=== PATIENT | female | born 1950 | race Caucasian/White ===

== ENCOUNTER → 2021-09-18 | Day surgery (SDC) | payer MEDICARE, OTHER ==
[2021-09-17 09:18] VITALS: BMI 34.0
[~2021-09-18] MED LIST: BUPIVACAINE (PF) 0.25% 30 ML VIAL SQ ONE; DEXAMETHASONE SOD PHOSPHATE 4 MG/ML 1 ML VIAL IV ONE; HYDROmorphone 0.5 MG/0.5 ML SYRINGE IVP PRN; LACTATED RINGERS 1,000 ML IV ONE; LACTATED RINGERS 1,000 ML IV SCH; LIDOCAINE 1% INJ 10MG/ML (20 ML MDV) ONE; MIDAZOLAM 2 MG/2 ML VIAL IV PRN; MIDAZOLAM 2 MG/2 ML VIAL IVP ONE; ONDANSETRON 4 MG/2 ML VIAL IVP ONE; PROPOFOL 10 MG/ML 20 ML VIAL IV ONE; ROPIVACAINE 5 MG/ML 30 ML VIAL ONE; SODIUM CHLORIDE 0.9% (PF) 10 ML VIAL ONE; ePHEDrine 50 MG/ML 1 ML VIAL ONE; fentaNYL (PF) 50 MCG/ML 2 ML AMP IVP ONE; fentaNYL (PF) 50 MCG/ML 2 ML AMP ONE
--- NOTE | 2021-09-18 08:53 | P.ANPRN ---
Procedure Note - Anesthesia - Nerve Block Performed Right Popliteal Single Time Out Performed: Yes (0740) Date of Procedure: 09/18/21 Procedure Start Time: 07:41 Procedure Stop Time: 07:46 Location of Patient: PreOp Indication: Acute Post-Operative Pain, Requested by Surgeon Specifically requested for management of pain by DrBridget: Louis Fuentes Sedation Type: Sedate with meaningful contact maintained Preparation: Sterile Prep Position: Left Lateral Catheter: None Needle Types: Pajunk Needle Gauge: 21 Ultrasound used to visualize needle placement: Yes Ultrasound used to observe medication spread: Yes Injectate: 0.5% Ropivacaine (see comment for volume) (15cc + 10cc nacl pf) Blood Aspirated: No Pain Paresthesia on Injection Noted: No Resistance on Injection: Normal Image Stored and Saved: Yes Events: Uneventful and Well Tolerated
--- NOTE | 2021-09-18 08:54 | P.ANPRN ---
Procedure Note - Anesthesia - Nerve Block Performed Right Adductor Canal Single Time Out Performed: Yes (0740) Date of Procedure: 09/18/21 Procedure Start Time: 07:47 Procedure Stop Time: 07:50 Location of Patient: PreOp Indication: Acute Post-Operative Pain, Requested by Surgeon Specifically requested for management of pain by DrBridget: Louis Fuentes Sedation Type: Sedate with meaningful contact maintained Preparation: Sterile Prep Position: Supine Catheter: None Needle Types: Pajunk Needle Gauge: 21 Ultrasound used to visualize needle placement: Yes Ultrasound used to observe medication spread: Yes Injectate: 0.5% Ropivacaine (see comment for volume) (15cc+ 10cc nacl pf) Blood Aspirated: No Pain Paresthesia on Injection Noted: No Resistance on Injection: Normal Image Stored and Saved: Yes Events: Uneventful and Well Tolerated
[2021-09-18 10:21] VITALS: TEMP 97.8
--- NOTE | 2021-09-18 10:29 | P.OP ---
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 Timeout was taken to confirm correct patient identifiers, correct site of surgery, and correct procedure. When the room was in agreement with the timeout, the patient was induced and placed under general anesthesia. A well- padded tourniquet was placed on the right ankle. Then 20 mL of 0.25% Marcaine was injected as a right ankle block. A wedge was placed underneath the right hip to internally rotate the right foot in the right foot was prepped and draped in the usual manner. The foot was exsanguinated and the tourniquet inflated to 250 mmHg. Utilizing fluoroscopic visualization a metal pointer was used to signify where the fracture line was located. Once that was determined small incision was made over that area and bluntly dissected through the soft tissue layer. The periosteum was left intact over the fracture site but sharp instrumentation was inserted between the segments to remove any of the ingrowing soft tissue. Then a 2 mm drill bit was used to fenestrate the area and remove the nonviable bone at the fracture site. Another incision was made on the lateral side of the foot rocksolid to the fifth metatarsal base. It was bluntly dissected onto create a canal for the guidewire. The guidewire was placed at the distal aspect of the fifth metatarsal base and was aligned on the AP view with fluoroscopy. The wire was advanced proximally a centimeter at which point a lateral view was also taken to make sure that the trajectory was correct. Once that was determined the wire was taken to the level of the fracture. The under drill was then used over the wire and drilling was done under oscillatory power and advanced past the fracture line. The drill was left in place and then AP and oblique and lateral views were taken with fluoroscopy to make sure the drill bit was in the medullary canal. Once that was determined the under drill was removed leaving the wire in place. Then the 4.5 mm overdrill was done through the base of the fifth metatarsal and just crossing the fracture line. Then 1.5 mL of augment was injected at the fracture line within the medullary canal in the area of the fracture line. Then a 4.5 mm fully threaded screw was inserted at the base of the fifth metatarsal it was advanced into the medullary canal past the fracture until the head engaged the fifth metatarsal base. Then compression was applied to the screw to make sure that was stable. AP lateral and oblique views with fluoroscopy showed that the screw was within the medullary canal and the head was fully seated. The wounds were irrigated thoroughly with antibiotic saline. Subcu closure was done with 4-0 Monocryl. Skin closure done with 3-0 nylon. Nonadherent gauze and a bulky dry dressing applied to the right foot. The tourniquet was released and capillary refill return to all digits on the right foot. The patient was then placed in a well- padded, well molded plaster posterior mold/sugar tong splint. The ankle and foot were held in neutral degrees as it dried. Then anesthesia was reversed and the patient was taken recovery with vital signs stable.
[2021-09-18 12:35] VITALS: RESP 18
[2021-09-18 12:57] VITALS: BP 133/79; PULSE 72
== END | disposition home or self-care (01) ==
LOC: OR 06:44
PROVIDERS: ATTEND Podiatrist
DX: S92.351A Displaced fracture of fifth metatarsal bone, right foot, initial encounter for closed fracture (principal); W01.0XXA Fall on same level from slipping, tripping and stumbling without subsequent striking against object, initial encounter; I11.9 Hypertensive heart disease without heart failure; F32.A Depression, unspecified; I67.1 Cerebral aneurysm, nonruptured; I48.91 Unspecified atrial fibrillation; Z95.5 Presence of coronary angioplasty implant and graft; E78.5 Hyperlipidemia, unspecified; G47.33 Obstructive sleep apnea (adult) (pediatric); E07.9 Disorder of thyroid, unspecified; F41.9 Anxiety disorder, unspecified; K21.9 Gastro-esophageal reflux disease without esophagitis; Z97.3 Presence of spectacles and contact lenses; R26.81 Unsteadiness on feet; Z87.11 Personal history of peptic ulcer disease; Z96.643 Presence of artificial hip joint, bilateral; Z98.891 History of uterine scar from previous surgery; Z90.49 Acquired absence of other specified parts of digestive tract; Z96.612 Presence of left artificial shoulder joint; Z83.3 Family history of diabetes mellitus; Z82.49 Family history of ischemic heart disease and other diseases of the circulatory system; Z98.890 Other specified postprocedural states; Z79.01 Long term (current) use of anticoagulants; Z79.890 Hormone replacement therapy; Z79.899 Other long term (current) drug therapy
CPT/HCPCS: 64447; 64445; 76942; 28485; C1713 ×2; J2250; J1100; J0690; J2405; J2001; J3010; J2795; J2704

== ENCOUNTER → 2022-07-08 | Outpatient (CLI) | payer MEDICARE, OTHER | END | disposition home or self-care (01) | LOC: LABPAT 13:57 | PROVIDERS: ATTEND Orthopaedic Surgery Sports Medicine | DX: Z01.812 Encounter for preprocedural laboratory examination (principal) | CPT/HCPCS: 87070 ==

== ENCOUNTER → 2022-07-08 | Outpatient (CLI) | payer MEDICARE, OTHER ==
[2022-07-08 14:04] LABS: HCT 39.7 % (34.0-46.0); HGB 13.4 gm/dL (11.4-16.0); MCH 29.7 pg (25.0-35.0); MCHC 33.8 g/dL (31.0-37.0); MCV 88.1 fL (80.0-100.0); Mean Platelet Volume 9.2; Platelet Count 206 k/uL (150-450); RBC 4.51 m/uL (3.80-5.40); RDW 13.4 % (11.5-15.5)
[2022-07-08 14:20] LABS: Partial Thromboplastin Time 25.5 sec (22.0-30.0); Prothrombin Time 10.4 sec (9.0-12.0)
[2022-07-08 14:20] LABS: Appearance,Urine Clear (Clear); Bilirubin,Urine Negative (Negative); Blood,Urine Negative (Negative); Color,Urine Light Yellow; Glucose,Urine (UA) Negative (Negative); Hyaline Casts,Urine 1 /lpf (0-2); Ketones,Urine Negative (Negative); Leukocyte Esterase,Urine Small (Negative); Mucus,Urine Rare /hpf; Nitrite,Urine Negative (Negative); Protein,Urine Negative (Negative); RBC,Urine 1 /hpf (0-5); Squamous Epithelial Cell,Urine 1 /hpf (0-4); Urobilinogen,Urine <2.0 mg/dL (<2.0); WBC,Urine 3 /hpf (0-5)
--- NOTE | 2022-07-08 14:31 | CT ---
EXAMINATION TYPE: CT shoulder RT wo con DATE OF EXAM: 07/08/2022 COMPARISON: None HISTORY: Right shoulder pain. CT DLP: [address] of the right shoulder with reconstruction imaging. TECHNIQUE: Unenhanced CT of the right shoulder was performed with bone and soft tissue window setting s submitted in the axial coronal and sagittal planes. At a separate workstation 3-D TR imaging was o btained. FINDINGS: I do not see evidence for fracture or dislocation. AC joint arthropathy with mild spurring. Moderate narrowing glenohumeral joint space. Greater tuberosity and lesser tuberosity spur formation identified. Greater tuberosity spur formation results in impingement. MRI is much more sensitive and specific to rotator cuff pathology. No soft tissue masses appreciated. Visualized portions of the right lung demonstrate right apical scarring. IMPRESSION: 1. Degenerative changes as discussed. Impingement secondary to greater tuberosity spurring.
== END | disposition home or self-care (01) ==
LOC: RADCTMAIN 13:21
PROVIDERS: ATTEND Orthopaedic Surgery Sports Medicine
DX: M19.011 Primary osteoarthritis, right shoulder (principal)
CPT/HCPCS: 36415; 81001; 82565; 84520; 85027; 85610; 85730

== ENCOUNTER 2022-08-05 07:42 | Day surgery (SDC) | payer MEDICARE, OTHER ==
[2022-08-02 16:28] VITALS: BMI 31.4
[~2022-08-05 07:42] MED LIST changes: +ACETAMINOPHEN TAB 500 MG TAB PO PRN; -BUPIVACAINE (PF) 0.25% 30 ML VIAL SQ ONE; +GABAPENTIN 300 MG CAP PO PRN; -LACTATED RINGERS 1,000 ML IV ONE; +LIDOCAINE 1% (10MG/ML) FOR IV START INTRADERMA PRN; -LIDOCAINE 1% INJ 10MG/ML (20 ML MDV) ONE; +MELOXICAM 7.5 MG TAB PO PRN; -MIDAZOLAM 2 MG/2 ML VIAL IVP ONE; +ONDANSETRON 4 MG/2 ML VIAL IVP PRN; -PROPOFOL 10 MG/ML 20 ML VIAL IV ONE; -ROPIVACAINE 5 MG/ML 30 ML VIAL ONE; -SODIUM CHLORIDE 0.9% (PF) 10 ML VIAL ONE; +TRANEXAMIC ACID IN NACL,ISO-OS 1,000 MG in SALINE 1 100ML.BAG IVPB PRN; -ePHEDrine 50 MG/ML 1 ML VIAL ONE; -fentaNYL (PF) 50 MCG/ML 2 ML AMP IVP ONE; -fentaNYL (PF) 50 MCG/ML 2 ML AMP ONE
[2022-08-05 08:47] LABS: Glucose,Whole Blood 96 mg/dL (70-110)
[2022-08-05] MEDS ORDERED: ONDANSETRON 4 MG/2 ML VIAL IVP PRN (09:09)
[2022-08-05] MEDS ORDERED: diphenhydrAMINE 25 MG CAP PO PRN (09:09)
[2022-08-05] MEDS ORDERED: METOCLOPRAMIDE 5 MG/ML 2 ML VIAL IVP PRN (09:09)
[2022-08-05] MEDS ORDERED: HYDROmorphone 0.5 MG/0.5 ML SYRINGE IVP PRN ×2 (09:09)
[2022-08-05] MEDS ORDERED: HYDROcodone/APAP 10-325MG 1 EACH TAB PO PRN (09:13)
[2022-08-05] MEDS ORDERED: VANCOMYCIN 1,000 MG VIAL MISCELLANE ONE (09:59)
[2022-08-05] MEDS ORDERED: ceFAZolin 1,000 MG in SODIUM CHLORIDE 0.9% 1,000 ML IRRIGATION ONE (10:00)
[2022-08-05 11:23] LABS: Glucose,Whole Blood 116 mg/dL (70-110)
--- NOTE | 2022-08-05 11:53 | XR ---
EXAMINATION TYPE: XR shoulder limited RT DATE OF EXAM: 08/05/2022 COMPARISON: NONE TECHNIQUE: Two views submitted HISTORY: Post op FINDINGS: There is a prosthetic shoulder in near anatomic alignment. There is soft tissue edema and emphysema. Right lower lobe consolidation. IMPRESSION: 1. Postoperative change. Appears in near-anatomic alignment. 2. Right lower lobe infiltrate or atelectasis with small effusion.
--- NOTE | 2022-08-05 12:21 | OP ---
OPERATIVE REPORT PREOPERATIVE DIAGNOSIS: Right shoulder advanced osteoarthrosis. POSTOPERATIVE DIAGNOSIS: Right shoulder advanced osteoarthrosis. PROCEDURE PERFORMED: Right reverse total shoulder arthroplasty. ANESTHESIA: General endotracheal. ESTIMATED BLOOD LOSS: 100 mL. DRAINS: None. COMPLICATIONS: None apparent. DISPOSITION: Postanesthesia care unit. INDICATIONS FOR PROCEDURE: Savannah is a very pleasant 72-year-old female with longstanding right shoulder pain. Workup including x-rays revealed advanced osteoarthrosis of the right shoulder. At this point, it is felt that she has failed conservative management, and she would like to proceed with operative intervention. Risks of procedure were discussed with her in detail. These risks include, but are not limited to risk of infection, nerve damage, bleeding, pain, instability in the shoulder, loosening of the implants, and deep infection. There is also a small risk of deep vein thrombosis, which could lead to fatal pulmonary embolism. The patient understood the risks. All of her questions were answered to her satisfaction. An appropriate informed consent was obtained. DESCRIPTION OF THE PROCEDURE: The patient was identified in the preoperative holding area. Surgical site was marked by both the patient and myself. She was given 2 g of Ancef IV for prophylactic purposes. She was then transported to the operative suite. She was placed supine on the operating room table. General anesthetic was then administered and dosed per the Anesthesia Department without apparent complication. Examination under anesthesia was then performed to the right shoulder. She had elevation to 100 degrees, and external rotation at the side was to 20 degrees. The patient was then placed into the beach chair position and well-padded in preparation for surgery. Great care was taken to ensure that her cervical spine was in neutral alignment, well-padded, and maintained that way throughout the operative procedure. Great care was also taken to ensure that her legs were appropriately padded as well. The patient's right upper extremity was then prepped and draped in usual sterile fashion. Standard surgical pause was undertaken to ensure that we were operating the correct site and that appropriate preoperative antibiotics had been given. All staff in the room were in agreement, and we proceeded. The acromion, AC joint, clavicle, and coracoid were marked with a surgical pen. A planned incision starting at the level of the clavicle and extending distally over the deltopectoral interval approximately 1 cm lateral to the coracoid was marked with a surgical pen. The incision was then made with a 10-blade scalpel. Dissection was carried down sharply to the deltoid fascia. The deltopectoral interval was identified at the level of the clavicle. A small band retractor was then placed onto the proximal deltoid. I then released the deltoid fascia on the lateral aspect of the cephalic vein. The cephalic vein was preserved and left in its bed medially. The cephalic vein was protected throughout the entire case. I then identified the clavipectoral fascia. This was incised proximally to the level of the coracoacromial ligament. The coracoacromial ligament was left intact. I then used my finger to spread the interval between the conjoint tendon and the subscapularis. I felt for the axillary nerve, which was readily palpable. I then cleared the subacromial and subdeltoid spaces of bursal and scar tissue. I then utilized a Dick retractor to hold the deltoid and expose the humeral head. I then proceeded to release the subscapularis in the anterior-inferior shoulder capsule. The rotator cuff was inspected. She did have a tear of the anterior supraspinatus. The rotator interval was then identified. The course of the biceps tendon was then also identified. I then released the rotator interval starting at the base of the coracoid and then out laterally. The subscapularis and the anterior capsule were then released intratendinously. The subscapularis and capsular release extended distally in a lazy-S fashion approximately 1 cm medial to the biceps tendon. I then continued to release the capsule along the inferior neck in a vertical fashion to approximately the 6 o'clock position. Great care was taken to ensure that the capsule was always visualized as it was released as to avoid injuring the axillary nerve. I then brought a [employer] power systems engineer with the arm externally rotated and abducted. I continued to release the capsule inferomedially to the 4 o'clock position. The inferior osteophytes were now removed as well. This was done with a rongeur. I then proceeded with preparation of the humerus. I removed all the goat's monsivais osteophytes. I then removed the subchondral plate from the superior aspect of the humeral head utilizing a large rongeur. I then used a starting reamer to gain access to the humeral canal. This was 1 cm medial to the rotator cuff insertion and 1 cm posterior to the bicipital groove. I then prepared the humeral canal with hand reaming. I started with a 6 mm reamer and incrementally increased until firm resistance was encountered. This was at 9 mm. The reamer handle was then left in place. I then utilized a humeral resection guide set at 30 degrees of retrotorsion. The cutting block was then set 1 to 2 mm above the insertion of the rotator cuff. I then proceeded to osteotomize the head with the oscillating saw. I removed the resection guide and then completed the osteotomy. I then proceeded with trial stem placement. I then broached, started with a 6 mm broach and incrementally increased up to a 9 mm broach. The 9 mm trial broach was then left in place. I then proceeded with trial reduction. At this point, I did release the biceps tendon. This was tenotomized at the level of the superior labrum. A bone hook was then used to pull the humerus out laterally. I inspected the joint for any loose bodies. The condition of the cuff was again inspected. She did have a tear of the anterior supraspinatus. The Bhattman retractor was then placed on the posterior glenoid rim. The arm was then placed in approximately 80 degrees of abduction and in slight flexion on the Casey stand. I then proceeded to remove the hypertrophic labrum to definitively identify the actual glenoid. I then utilized the mini baseplate guide. The pin was then placed in the center of the glenoid in approximately 10 degrees of inferior tilt. I then used a mini baseplate reamer. The reaming was done as minimal as possible as to preserve as much subchondral bone as possible. I then placed the real mini baseplate. This was then impacted into the glenoid. I then placed a 30 mm central screw, which had an excellent purchase in bone. I was able to rotate the scapula with the screwdriver when the screw was fully seated. I then proceeded to place the peripheral locking screws. The inferior screw was 20 mm. The anterior-superior and posterior screws were 15 mm. I then had the public relations representative open a 36 mm glenosphere. The offset was done as to slightly rotate the glenosphere inferiorly. The glenosphere was then impacted onto the real baseplate with a dry Valenzuela taper. I then proceeded with trial reduction. I trialed with a standard poly and standard tray. The reduction was slightly difficult. It was stable throughout a full range of motion. There was no impingement noted. There was no undue tension on the conjoint tendon. I made a decision to proceed with the standard poly and standard tray. The shoulder was then very carefully re-dislocated. I had the public relations representative open a size 9 [employer] mini stem, a standard tray, and a standard polyethylene. The real stem was then impacted into the proximal humerus in approximately 30 degrees of retrotorsion. The wound was thoroughly irrigated with sterile saline solution with antibiotic added via pulsed lavage. I also utilized the Irrisept antiseptic solution at this time as well. The standard tray and standard poly were then impacted onto the real stem. The Valenzuela taper was dried completely before it was impacted. The shoulder was then reduced. Again, slightly difficult reduction, but it was very stable throughout a range of motion. There was no impingement noted. I felt for the axillary nerve, which was also readily palpable and uninjured. At this point, we proceeded with closure. Again, the shoulder was thoroughly irrigated with sterile saline solution with antibiotic added via pulsed lavage. Again, I utilized the Irrisept antiseptic solution. Approximately 500 mg of vancomycin was placed deep in the wound. The deltopectoral interval was reapproximated with 0 Vicryl interrupted sutures. The subcutaneous tissue was irrigated with sterile saline solution with antibiotic added via pulsed lavage. The remaining 500 mg of vancomycin powder was placed subcutaneously. The subcutaneous tissue was closed with 2-0 Vicryl interrupted suture, and the skin was closed with running 3-0 Quill suture. Dermabond was applied to the incision. Sterile dressing was applied. The patient's right upper extremity was placed into a standard sling. All sponge and needle counts were deemed correct prior to closure. The patient tolerated the procedure without apparent complication. She was transferred to recovery room in stable condition. MMODL / IJN: [id number] /
[2022-08-05] MEDS ORDERED: HYDROcodone/APAP 5-325MG 1 EACH TAB PO PRN (12:45)
[2022-08-05] MEDS: LACTATED RINGERS 1,000 ML IV SCH ×2 (13:38→16:51)
[2022-08-05] MEDS: HYDROcodone/APAP 10-325MG 1 EACH TAB PO PRN (14:58)
--- NOTE | 2022-08-05 20:57 | P.ANPRN ---
Procedure Note - Anesthesia - Nerve Block Performed Right Interscalene Single Time Out Performed: Yes Date of Procedure: 08/05/22 Procedure Start Time: 08:52 Procedure Stop Time: 08:55 Location of Patient: PreOp Indication: Acute Post-Operative Pain, Requested by Surgeon Sedation Type: Sedate with meaningful contact maintained Preparation: Sterile Prep Position: Supine Needle Types: Pajunk Needle Gauge: 21 Ultrasound used to visualize needle placement: Yes Ultrasound used to observe medication spread: Yes Blood Aspirated: No Pain Paresthesia on Injection Noted: No Resistance on Injection: Normal Image Stored and Saved: Yes Events: Uneventful and Well Tolerated (ropi .5% 20cc plus dexamethasone 4mg)
[2022-08-05] MEDS: hydrALAZINE HCL 50 MG TAB PO SCH (21:25)
[2022-08-05] MEDS: ATORVASTATIN 80 MG TAB PO SCH (21:25)
[2022-08-05] MEDS: APIXABAN 5 MG TAB PO SCH (21:25)
--- NOTE | 2022-08-06 02:06 | CONS ---
CONSULTATION HISTORY OF PRESENT ILLNESS: Status post right shoulder replacement, having no chest pain, shortness of breath, sitting up in the chair, postop right shoulder, rotator cuff surgery. Home medications have been reordered. She is having no chest pain, shortness of breath. PAST MEDICAL HISTORY: AFib, hypothyroidism, dyslipidemia, urinary incontinence, hypertension, osteoarthritis. PROGNOSIS: Guarded. PHYSICAL EXAMINATION: CARDIOVASCULAR: S1, S2. LUNGS: Transmitted upper sounds. HEMATOLOGY: Negative Homans. VITAL SIGNS: Blood pressure is low 100s over 70s to 90s, O2 is 96% on 2 L, temperature 97.2, pulse is 92, respirations 18. CARDIOVASCULAR: S1, S2. LUNGS: Clear. GI: Soft. PSYCH: Fair mood and effect. NEUROLOGIC: Alert and oriented x3. ASSESSMENT AND PLAN: status post rotator cuff repair, hypothyroidism, hypertension, coronary artery disease, stomach ulcers, depression, and brain aneurysm. Continue current treatment. PROGNOSIS: Guarded. Follow up as an outpatient. The patient is clinically stable. Home medications have been reordered. MMODL / IJN: [id number] /
[2022-08-06] MEDS: LEVOTHYROXINE 112 MCG TAB PO SCH (06:38)
[2022-08-06] MEDS: LACTATED RINGERS 1,000 ML IV SCH ×2 (08:02→15:07)
[2022-08-06 08:52] LABS: Basophils # (A) 0.01 X 10*3/uL (0.00-0.10); Basophils % (A) 0.1 %; Eosinophils # (A) 0 X 10*3/uL (0.04-0.35); Eosinophils % (A) 0 %; HCT 33.3 % (37.2-46.3); HGB 10.7 g/dL (12.0-15.0); Immature Grans, Automated 0.2 %; Lymphocytes # (A) 0.67 X 10*3/uL (0.90-5.00); Lymphocytes % (A) 6.7 %; MCHC 32.1 g/dL (32.0-37.0); MCV 90.2 fL (80.0-97.0); Mean Platelet Volume 11.5 fL (9.5-12.2); Monocytes # (A) 0.73 X 10*3/uL (0.20-1.00); Monocytes % (A) 7.3 %; NRBC Per 100 WBC 0 /100 WBCS (0.0-0.0); Neutrophils # (A) 8.59 X 10*3/uL (1.80-7.70); Neutrophils % (A) 85.7 %; Platelet Count 195 X 10*3/uL (140-440); RBC 3.69 X 10*6/uL (4.10-5.20); RDW 13.7 % (11.5-14.5); WBC 10.02 X 10*3/uL (4.50-10.00)
[2022-08-06] MEDS ORDERED: NON FORMULARY DRUG (Glucos Sul 2kcl/Msm/Chond/C/Mn [Glucosamine Chondroitin Cap] 1 EACH Ca PO SCH (09:00)
[2022-08-06] MEDS: CALCIUM CARB-VIT D 500 MG-5 MCG TAB PO SCH (09:41)
[2022-08-06] MEDS: OXYBUTYNIN CHLORIDE 5 MG TAB PO SCH (09:41)
[2022-08-06] MEDS: THIAMINE 100 MG TAB PO SCH (09:41)
[2022-08-06] MEDS: lisinopriL 20 MG TAB PO SCH (09:41)
[2022-08-06] MEDS: CYANOCOBALAMIN 500 MCG TAB PO SCH (09:41)
[2022-08-06] MEDS: FERROUS SULFATE 325 MG TAB PO SCH (09:42)
[2022-08-06] MEDS: HYDROcodone/APAP 10-325MG 1 EACH TAB PO PRN ×3 (09:42→21:47)
[2022-08-06] MEDS: PANTOPRAZOLE 40 MG TABLET PO SCH (09:43)
[2022-08-06] MEDS: hydrALAZINE HCL 50 MG TAB PO SCH ×2 (09:43→21:46)
[2022-08-06] MEDS: MULTIVITAMINS, THERA 1 EACH TAB PO SCH (09:43)
[2022-08-06] MEDS: APIXABAN 5 MG TAB PO SCH ×2 (09:43→21:46)
[2022-08-06] MEDS: ASPIRIN 81 MG PO SCH (09:43)
[2022-08-06] MEDS: polyethylene glycoL 3350 17 GM POWD.PACK PO SCH (09:43)
[2022-08-06] MEDS: FLUTICASONE 50MCG/SPRAY NASAL 16GM EA NOSTRIL SCH (09:48)
[2022-08-06] MEDS: BISOPROLOL 5 MG TAB PO SCH (09:49)
[2022-08-06] MEDS: PYRIDOXINE 50 MG TAB PO SCH (09:49)
[2022-08-06] MEDS: HYDROmorphone 0.5 MG/0.5 ML SYRINGE IVP PRN ×2 (12:15→15:11)
--- NOTE | 2022-08-06 14:00 | P.PN ---
Subjective Progress Note Date: 08/06/22 Principal diagnosis: s/p Right TSA Patient is seen at bedside this morning. She is postop day #1 from right total shoulder arthroplasty. She has pain at the surgical site as expected but denies any new complaints. She denies numbness, tingling or calf pain. Review of systems is negative for fever, chills, chest pain, shortness of breath or other Objective - Vital Signs Vital signs: Vital Signs Temp 98 F 08/06/22 02:07 Pulse 57 L 08/06/22 02:07 Resp 17 08/06/22 02:07 BP 105/58 08/06/22 02:07 Pulse Ox 97 08/06/22 02:07 FiO2 Intake & Output 08/05/22 08/06/22 08/06/22 18:59 06:59 18:59 Intake Total 671 Output Total 100 Balance 571 Weight 80.1 kg Intake: IV 671 Output: Estimated Blood Loss 100 Other: # Voids 1 3 - Exam Inspection reveals a benign surgical wound. There is no active bleeding or drainage. Neurovascular status is intact throughout the upper extremity with motor and sensation fully intact. Calves are soft and nontender. 2+ radial pulse and less than 2 second cap refill is present. - Constitutional General appearance: Present: no acute distress - Labs CBC & Chem 7: 08/06/22 05:44 Labs: Abnormal Lab Results - Last 24 Hours (Table) 08/05/22 Range/Units 11:20 POC Glucose (mg/dL) 116 H (70-110) mg/dL Assessment and Plan (1) Status post total replacement of right shoulder Narrative/Plan: She will continue with routine postop orthopedic protocol including pain management, wound care, DVT prophylaxis and medical management. Expect that she will transfer to home tomorrow Current Visit: Yes Status: Acute Priority: Medium Code(s): Z96.611 - PRESENCE OF RIGHT ARTIFICIAL SHOULDER JOINT SNOMED Code(s): 961091856 Time with Patient: Less than 30
[2022-08-06] MEDS: SENNOSIDES-DOCUSATE SODIUM 1 EACH TAB PO PRN (15:15)
[2022-08-06] MEDS: ATORVASTATIN 80 MG TAB PO SCH (21:46)
[2022-08-07] MEDS: LACTATED RINGERS 1,000 ML IV SCH (06:52)
[2022-08-07] MEDS: LEVOTHYROXINE 112 MCG TAB PO SCH (07:26)
[2022-08-07] MEDS ORDERED: buPROPion XL 150 MG TAB.ER.24H PO SCH (09:00)
[2022-08-07] MEDS: SENNOSIDES-DOCUSATE SODIUM 1 EACH TAB PO PRN (09:05)
[2022-08-07] MEDS: HYDROcodone/APAP 10-325MG 1 EACH TAB PO PRN (09:06)
[2022-08-07] MEDS: THIAMINE 100 MG TAB PO SCH (10:02)
[2022-08-07] MEDS: CALCIUM CARB-VIT D 500 MG-5 MCG TAB PO SCH (10:03)
[2022-08-07] MEDS: OXYBUTYNIN CHLORIDE 5 MG TAB PO SCH (10:03)
[2022-08-07] MEDS: PYRIDOXINE 50 MG TAB PO SCH (10:03)
[2022-08-07] MEDS: polyethylene glycoL 3350 17 GM POWD.PACK PO SCH (10:04)
[2022-08-07] MEDS: CYANOCOBALAMIN 500 MCG TAB PO SCH (10:04)
[2022-08-07] MEDS: MULTIVITAMINS, THERA 1 EACH TAB PO SCH (10:04)
[2022-08-07] MEDS: FERROUS SULFATE 325 MG TAB PO SCH (10:04)
[2022-08-07] MEDS: PANTOPRAZOLE 40 MG TABLET PO SCH (10:04)
[2022-08-07] MEDS: ASPIRIN 81 MG PO SCH (10:04)
[2022-08-07] MEDS: APIXABAN 5 MG TAB PO SCH ×2 (10:04→21:22)
[2022-08-07] MEDS: hydrALAZINE HCL 50 MG TAB PO SCH ×2 (10:09→21:22)
[2022-08-07] MEDS: FLUTICASONE 50MCG/SPRAY NASAL 16GM EA NOSTRIL SCH (10:09)
[2022-08-07] MEDS: BISOPROLOL 5 MG TAB PO SCH (10:09)
[2022-08-07] MEDS: lisinopriL 20 MG TAB PO SCH (10:09)
--- NOTE | 2022-08-07 11:21 | P.PN ---
Subjective Progress Note Date: 08/07/22 This patient is a 72- year old female who is status-post right reverse total shoulder arthroplasty on 08/05/[address] Yen. Today is post-operative day #2. Patient is examined bedside. She is up to the [facility] chair. Patient is complaining of severe constipation and stomach pain today. She has not had a bowel movement since Tuesday. Patient states she is unable to eat a lot and is not passing gas. She has been given multiple medication per nursing with no bowel movement. She denies chest pain, shortness of breath. No complaints in regard to her right shoulder. Objective - Vital Signs Vital signs: Vital Signs Temp 98.5 F 08/07/22 07:19 Pulse 51 L 08/07/22 07:19 Resp 15 08/07/22 07:19 BP 123/68 08/07/22 07:19 Pulse Ox 96 08/07/22 07:19 FiO2 Intake & Output 08/06/22 08/07/22 08/07/22 18:59 06:59 18:59 Intake Total 300 Output Total 400 Balance 300 -400 Intake: Oral 300 Output: Urine 400 Other: # Voids 5 3 - Exam On examination, patient is sitting up in the bedside chair in no apparent distress. She is alert and orientated x3. On inspection of the right shoulder, there is a clean, dry, intact surgical dressing in placed. RUE in sling. Radial pulse easily palpable, RUE warm and well perfused. Motor and sensory function intact RUE. - Labs CBC & Chem 7: 08/06/22 05:44 Assessment and Plan Assessment: Status-post right reverse total shoulder arthroplasty on 08/05/[address] Yen. Post-op day #2. Plan: - Appreciate recommendations from internal medicine regarding constipation. If patient has a bowel movement later today, she will discharge home. - Continue pain management as needed. Keep right arm in sling. - Eliquis has been resumed for blood clot prevention.
--- NOTE | 2022-08-07 11:51 | XR ---
EXAMINATION TYPE: XR abdomen complete w decub DATE OF EXAM: 08/07/2022 COMPARISON: NONE HISTORY: Abdominal pain TECHNIQUE: Supine, upright, and left side down lateral decubitus views of the abdomen are obtained. FINDINGS: There is no free air beneath the diaphragm. There is a minimally prominent air-filled loop of small bowel in the midabdomen but no definite air-f luid levels on the decubitus views. There is a large amount of stool within the right colon. There are no suspicious abdominal or pelvic calcification. There are marked degenerative changes in the thoracolumbar spine and there is a thoracolumbar scolios is. There are bilateral hip prostheses. IMPRESSION: Findings most consistent with possibly a mild ileus with a large amount of stool within the colon.. T here is no free intraperitoneal air.
[2022-08-07] MEDS ORDERED: NA PHOS,M-B/NA PHOS,DI-BA 133 ML ENEMA RECTAL ONE (16:00)
[2022-08-07] MEDS: ATORVASTATIN 80 MG TAB PO SCH (21:22)
[2022-08-07] MEDS: LACTULOSE 20 GM/30 ML CUP PO SCH (22:06)
--- NOTE | 2022-08-07 23:47 | PN ---
PROGRESS NOTE DATE OF SERVICE: 08/06/2022 SUBJECTIVE: White female, status post right shoulder surgery. She is not feeling all good. . Her home medicines have been reviewed. She is breathing okay. She had any bowel movements. We will do abdominal x-rays, etc. Continue home medicines. OBJECTIVE: VITAL SIGNS: Appeared to be stable. CARDIOVASCULAR: S1, S2. LUNGS: Clear. GI: Distended. MUSCULOSKELETAL: Right shoulder is in a sling. ASSESSMENT: Multiple medical issues, status post right shoulder surgery, possible ileus abdominal x-rays, possibly a bowel prep program. Home medications have been reordered. Prognosis is guarded. MMODL / IJN: [id number] /
--- NOTE | 2022-08-08 07:08 | XR ---
EXAMINATION TYPE: XR abdomen complete w decub DATE OF EXAM: 08/08/2022 COMPARISON: 08/07/2022 HISTORY: Follow-up ileus TECHNIQUE: Supine, upright, and left side down lateral decubitus views of the abdomen are obtained. FINDINGS: There is no evidence for pneumoperitoneum. The bowel gas pattern is unremarkable as there is air throughout nondilated small and large bowel. No sizeable air fluid levels. No mass effects are seen. No unusual calcifications. There is a moderate amount of stool within the colon. There are bilateral hip prostheses. IMPRESSION: Nonspecific bowel gas pattern without free air or obstruction.
[2022-08-08 07:42] VITALS: RESP 16
[2022-08-08] MEDS: lisinopriL 20 MG TAB PO SCH (09:38)
[2022-08-08] MEDS: hydrALAZINE HCL 50 MG TAB PO SCH (09:38)
[2022-08-08] MEDS: BISOPROLOL 5 MG TAB PO SCH (09:38)
[2022-08-08] MEDS: LACTULOSE 20 GM/30 ML CUP PO SCH ×2 (09:38→15:03)
[2022-08-08] MEDS: CYANOCOBALAMIN 500 MCG TAB PO SCH (09:39)
[2022-08-08] MEDS: APIXABAN 5 MG TAB PO SCH (09:39)
[2022-08-08] MEDS: CALCIUM CARB-VIT D 500 MG-5 MCG TAB PO SCH (09:39)
[2022-08-08] MEDS: PANTOPRAZOLE 40 MG TABLET PO SCH (09:39)
[2022-08-08] MEDS: THIAMINE 100 MG TAB PO SCH (09:39)
[2022-08-08] MEDS: FERROUS SULFATE 325 MG TAB PO SCH (09:39)
[2022-08-08] MEDS: polyethylene glycoL 3350 17 GM POWD.PACK PO SCH (09:39)
[2022-08-08] MEDS: ASPIRIN 81 MG PO SCH (09:39)
[2022-08-08] MEDS: OXYBUTYNIN CHLORIDE 5 MG TAB PO SCH (09:39)
[2022-08-08] MEDS: MULTIVITAMINS, THERA 1 EACH TAB PO SCH (09:39)
[2022-08-08] MEDS: PYRIDOXINE 50 MG TAB PO SCH (09:40)
[2022-08-08] MEDS: FLUTICASONE 50MCG/SPRAY NASAL 16GM EA NOSTRIL SCH (09:45)
--- NOTE | 2022-08-08 09:45 | P.DS ---
Providers Expected date of discharge: 08/08/22 Attending physician: Juan Yne Consults: 08/05/22 09:09 Consult Physician Routine Consulting Provider: Julio Monique Reason/Comments: post op medical management Do you want consulting provider notified?: Yes Primary care physician: Isis Loo MD Hospital Course: This is a 72-year-old female with known history of degenerative arthritis of the right shoulder. The patient presented for evaluation as an outpatient. After discussion and consideration patient elects to proceed with total shoulder arthroplasty. The patient is seen preoperatively by Dr. Yen and medically cleared for surgery by their primary care physician. Patient is admitted to [facility] on 08/05/22 for total shoulder arthroplasty. The procedure is performed without complication or sequelae. The patient is doing well postoperatively. Labs and vital signs are stable on day of discharge. Patient is seen and examined bedside this morning. She is up to the bedside chair. She states pain in her shoulder is well controlled. She is tolerating small amounts of food. Patient was very constipated yesterday and abdominal x- ray was ordered by Dr. Monique. Patient did have a very small bowel movement last evening and is passing more gas today. She overall feels better. No new complaints. On examination, patient is sitting up in the bedside chair in no apparent distress. She is alert and orientated x3. On inspection of the right shoulder, there is a clean, dry, intact dressing in place. Motor and sensory function intact RUE. Right radial pulse easily palpable. Patient is discharged home in good condition today, pending medical clearance from internal medicine. She should follow-up in the office with Dr. Yen. Please see med rec for accurate list of home medications. Plan - Discharge Summary Discharge Rx Participant: Yes New Discharge Prescriptions: New Docusate [Colace] 100 mg PO BID #60 capsule HYDROcodone/APAP 10-325MG [[place] 10-325] 1 tab PO Q4HR PRN #42 tab PRN Reason: Pain Doxycycline Hyclate 100 mg PO BID #10 tab No Action Apixaban [Eliquis] 5 mg PO BID Aspirin 81 mg PO DAILY Calcium Carbonate/Vitamin D3 [Calcium 600 mg-D3 10 Mcg (400 Iu)] 1 each PO DAILY Cholecalciferol [Vitamin D3 (125 Mcg = 5000 Iu)] 125 mcg PO DAILY Cyanocobalamin (Vitamin B-12) [Vitamin B12] 5,000 mcg PO DAILY Glucos Sul 2Kcl/MSM/Chond/C/Mn [Glucosamine Chondroitin Cap] 1 each PO DAILY hydrALAZINE HCL 50 mg PO BID Iron 65 mg PO DAILY Levothyroxine Sodium [Synthroid] 112 mcg PO MOTUWETHFRSA Multivitamin [Multivitamins Adult Gummies] 1 each PO DAILY Oxybutynin Chloride 5 mg PO QAM polyethylene glycoL 3350 [Miralax] 17 gm PO DAILY Rosuvastatin Calcium 40 mg PO HS HYDROcodone/APAP 5-325MG [[place] 5-325] 1 tab PO Q6HR PRN #28 tab PRN Reason: Pain Celecoxib [Celebrex] 200 mg PO DAILY buPROPion HCL [Wellbutrin XL] 150 mg PO Q48H Fluticasone Nasal [place] [Flonase Nasal [place]] 1 spray EA NOSTRIL DAILY Omeprazole 40 mg PO QAM Pyridoxine HCl (Vitamin B6) [Vitamin B-6] 100 mg PO DAILY Thiamine HCl [Vitamin B-1] 250 mg PO DAILY lisinopriL 40 mg PO QAM Bisoprolol Fumarate 2.5 mg PO QAM Discharge Medication List Apixaban [Eliquis] 5 mg PO BID 09/17/21 [History] Aspirin 81 mg PO DAILY 09/18/21 [History] Calcium Carbonate/Vitamin D3 [Calcium 600 mg-D3 10 Mcg (400 Iu)] 1 each PO DAILY 09/18/21 [History] Cholecalciferol [Vitamin D3 (125 Mcg = 5000 Iu)] 125 mcg PO DAILY 09/18/21 [History] Cyanocobalamin (Vitamin B-12) [Vitamin B12] 5,000 mcg PO DAILY 09/18/21 [History] Fluticasone Nasal [place] [Flonase Nasal [place]] 1 spray EA NOSTRIL DAILY 09/18/21 [History] Glucos Sul 2Kcl/MSM/Chond/C/Mn [Glucosamine Chondroitin Cap] 1 each PO DAILY 09/18/21 [History] HYDROcodone/APAP 5-325MG [[place] 5-325] 1 tab PO Q6HR PRN #28 tab 09/18/21 [Rx] Iron 65 mg PO DAILY 09/18/21 [History] Levothyroxine Sodium [Synthroid] 112 mcg PO MOTUWETHFRSA 09/18/21 [History] Multivitamin [Multivitamins Adult Gummies] 1 each PO DAILY 09/18/21 [History] Omeprazole 40 mg PO QAM 09/18/21 [History] Oxybutynin Chloride 5 mg PO QAM 09/18/21 [History] Pyridoxine HCl (Vitamin B6) [Vitamin B-6] 100 mg PO DAILY 09/18/21 [History] Rosuvastatin Calcium 40 mg PO HS 09/18/21 [History] Thiamine HCl [Vitamin B-1] 250 mg PO DAILY 09/18/21 [History] buPROPion HCL [Wellbutrin XL] 150 mg PO Q48H 09/18/21 [History] hydrALAZINE HCL 50 mg PO BID 09/18/21 [History] polyethylene glycoL 3350 [Miralax] 17 gm PO DAILY 09/18/21 [History] Bisoprolol Fumarate 2.5 mg PO QAM 08/02/22 [History] Celecoxib [Celebrex] 200 mg PO DAILY 08/02/22 [History] lisinopriL 40 mg PO QAM 08/02/22 [History] Docusate [Colace] 100 mg PO BID #60 capsule 08/05/22 [Rx] Doxycycline Hyclate 100 mg PO BID #10 tab 08/05/22 [Rx] HYDROcodone/APAP 10-325MG [[place] 10-325] 1 tab PO Q4HR PRN #42 tab 08/05/22 [Rx] Follow up Appointment(s)/Referral(s): Juan Yen MD [STAFF PHYSICIAN] - 08/13/22 1:50 pm Patient Instructions/Handouts: Shoulder Arthroplasty (DC) Activity/Diet/Wound Care/Special Instructions: maintain sling keep wound clean and dry take meds as directed f/u in office may shower in 3 days if no bleeding Discharge Disposition: HOME SELF-CARE
[2022-08-08] MEDS ORDERED: NA PHOS,M-B/NA PHOS,DI-BA 133 ML ENEMA RECTAL ONE (12:00)
[2022-08-08 13:40] VITALS: BP 142/74; PULSE 60; TEMP 98.1
[2022-08-08] MEDS ORDERED: MAGNESIUM HYDROXIDE 2,400 MG/10 ML CUP PO PRN (13:41)
--- NOTE | 2022-08-08 14:49 | CT ---
EXAMINATION TYPE: CT abdomen pelvis wo con DATE OF EXAM: 08/08/2022 COMPARISON: None HISTORY: bloating CT DLP: 815.2 mGycm Automated exposure control for dose reduction was used. Images obtained from the diaphragm to the floor the pelvis with no contrast. The lung bases are clear of consolidation. No pleural effusion. Heart size is normal. No pericardial effusion. Liver spleen gallbladder appear intact. The bile ducts are not dilated. There is no pancrea tic mass. There is no adrenal mass. Kidneys have normal size. No hydronephrosis. The ureters are not dilated. T here is 2 mm calculus posterior right kidney. No retroperitoneal adenopathy. No evidence of pelvic ma ss. Bladder not well seen. There is metal artifact from bilateral hip prosthesis. No free fluid in th e pelvis. There are multiple calcified uterine fibroids. There is no mesenteric edema. No ascites or free air. No sign of a bowel obstruction. Appendix not se en. No sonographic thickened appendix. There is a thoracolumbar mild levoscoliosis. There is multilevel lumbar spondylotic changes with disc space narrowing and vacuum disc and spur formation. No fracture seen. IMPRESSION: Enlarged fibroid uterus. No acute abnormality of the abdomen pelvis. Mild retained fecal material. No nobstructing right renal calculus. Lumbar multilevel spondylotic changes.
[2022-08-08] MEDS: HYDROcodone/APAP 10-325MG 1 EACH TAB PO PRN (16:41)
== END 2022-08-08 17:32 | disposition home or self-care (01) ==
LOC: OR 07:42 → 4SSUR 11:13 → OR 08-08 17:32
PROVIDERS: ATTEND Orthopaedic Surgery Sports Medicine
DX: M19.011 Primary osteoarthritis, right shoulder (principal); I11.9 Hypertensive heart disease without heart failure; D25.9 Leiomyoma of uterus, unspecified; E03.9 Hypothyroidism, unspecified; E78.5 Hyperlipidemia, unspecified; F32.A Depression, unspecified; I25.10 Atherosclerotic heart disease of native coronary artery without angina pectoris; I48.91 Unspecified atrial fibrillation; Z79.890 Hormone replacement therapy; Z79.899 Other long term (current) drug therapy; Z79.82 Long term (current) use of aspirin; Z79.01 Long term (current) use of anticoagulants; M47.816 Spondylosis without myelopathy or radiculopathy, lumbar region; M48.061 Spinal stenosis, lumbar region without neurogenic claudication; N20.0 Calculus of kidney; Z96.611 Presence of right artificial shoulder joint; Z96.643 Presence of artificial hip joint, bilateral; Z98.890 Other specified postprocedural states
CPT/HCPCS: 97161; 97165; 85025; 73020; 74021; 74176; 23472; J2250; J3370; J1100; J0690 ×3; J2405; J1170; 88305; 88311

== ENCOUNTER 2023-05-06 23:18 | Observation (INO) | payer MEDICARE, OTHER ==
[2023-05-07 00:33] VITALS: RESP 18
[2023-05-07] MEDS ORDERED: NALOXONE 0.4 MG/ML 1 ML VIAL IV PRN (01:04)
[2023-05-07] MEDS ORDERED: HYDROcodone/APAP 5-325MG 1 EACH TAB PO PRN (01:04)
[2023-05-07] MEDS ORDERED: ACETAMINOPHEN TAB 325 MG TAB PO PRN (01:04)
[2023-05-07] MEDS ORDERED: ONDANSETRON 4 MG/2 ML VIAL IVP PRN (01:04)
--- NOTE | 2023-05-07 01:06 | ED ---
Dizziness HPI - General Chief Complaint: Dizziness Stated Complaint: cva Time Seen by Provider: 05/06/23 23:32 Source: patient, EMS, RN notes reviewed Mode of arrival: EMS Limitations: no limitations - History of Present Illness Initial Comments: This is a 73-year-old female who presents to the emergency department for dizziness. Patient is a transfer from [facility]. She presented to their emergency department with dizziness. She woke up with dizziness at 5 AM yesterday morning (05/06) with a room spinning sensation. She also had difficulty walking. She underwent blood work, a chest x-ray, and computed tomography scan of the brain while she was there. They noted her to have bilateral nystagmus and were concerned about a posterior stroke. She was not a TPA candidate due to the duration of symptoms. Due to their concern for posterior stroke, she was transferred to our facility for an MRI and neurological evaluation. Dr. Hassan was the accepting physician. Patient states that she does still have some dizziness, but otherwise feels fine. She notes a history of aneurysms that have been previously monitored. Also states that she has a history of a TIA several years ago. MD Complaint: dizziness - Related Data Home Medications Medication Instructions Recorded Confirmed Apixaban [Eliquis] 5 mg PO BID 09/17/21 08/05/22 Aspirin 81 mg PO DAILY 09/18/21 08/05/22 Calcium Carbonate/Vitamin D3 1 each PO DAILY 09/18/21 08/05/22 [Calcium 600 mg-D3 10 Mcg (400 Iu)] Cholecalciferol [Vitamin D3 (125 125 mcg PO DAILY 09/18/21 08/05/22 Mcg = 5000 Iu)] Cyanocobalamin (Vitamin B-12) 5,000 mcg PO DAILY 09/18/21 08/05/22 [Vitamin B-12] Fluticasone Nasal [place] [Flonase 1 spray EA NOSTRIL DAILY 09/18/21 08/05/22 Nasal [place]] Glucos Sul 2Kcl/MSM/Chond/C/Mn 1 each PO DAILY 09/18/21 08/05/22 [Glucosamine Chondroitin Cap] Iron 65 mg PO DAILY 09/18/21 08/05/22 Levothyroxine Sodium [Synthroid] 112 mcg PO MOTUWETHFRSA 09/18/21 08/05/22 Multivitamin [Multivitamins Adult 1 each PO DAILY 09/18/21 08/05/22 Gummies] Omeprazole 40 mg PO QAM 09/18/21 08/05/22 Oxybutynin Chloride 5 mg PO QAM 09/18/21 08/05/22 Pyridoxine HCl (Vitamin B6) 100 mg PO DAILY 09/18/21 08/05/22 [Vitamin B-6] Rosuvastatin Calcium 40 mg PO HS 09/18/21 08/05/22 Thiamine HCl [Vitamin B-1] 250 mg PO DAILY 09/18/21 08/05/22 buPROPion HCL [Wellbutrin XL] 150 mg PO Q48H 09/18/21 08/05/22 hydrALAZINE HCL 50 mg PO BID 09/18/21 08/05/22 polyethylene glycoL 3350 [Miralax] 17 gm PO DAILY 09/18/21 08/05/22 Bisoprolol Fumarate 2.5 mg PO QAM 08/02/22 08/05/22 lisinopriL 40 mg PO QAM 08/02/22 08/05/22 Previous Rx's Medication Instructions Recorded Docusate [Colace] 100 mg PO BID #60 capsule 08/05/22 Doxycycline Hyclate 100 mg PO BID #10 tab 08/05/22 HYDROcodone/APAP 10-325MG [[place] 1 tab PO Q4HR PRN #42 tab 08/05/22 10-325] Allergies Allergy/AdvReac Type Severity Reaction Status Date / Time No Known Allergies Allergy Verified 08/05/22 08:31 Review of Systems ROS Statement: Those systems with pertinent positive or pertinent negative responses have been documented in the HPI. ROS Other: All systems not noted in ROS Statement are negative. Past Medical History Past Medical History: Atrial Fibrillation, GERD/Reflux, Hyperlipidemia, Hypertension, Osteoarthritis (OA), Sleep Apnea/CPAP/BIPAP, Thyroid Disorder Additional Past Medical History / Comment(s): LOOP RECORDER IN PLACE. BRAIN ANEURYSM History of Any Multi-Drug Resistant Organisms: None Reported Past Surgical History: Adenoidectomy, Appendectomy, Section, Joint Replacement, Orthopedic Surgery, Tonsillectomy Additional Past Surgical History / Comment(s): LEFT FOOT SURGERY X3, BILATERAL HIP REPLACEMENT, LEFT SHOULDER REPLACEMENT, LOOP RECORDER PLACED, right carpal tunnel surgery, right foot surgery, with screw placed. Past Anesthesia/Blood Transfusion Reactions: No Reported Reaction Additional Past Anesthesia/Blood Transfusion Reaction / Comment(s): "SLOW TO WAKE" Past Psychological History: Anxiety Smoking Status: Never smoker Past Alcohol Use History: None Reported Past Drug Use History: None Reported - Past Family History Father Family Medical History: Cancer Mother Family Medical History: Cancer General Exam Limitations: no limitations General appearance: alert, in no apparent distress Head exam: Present: atraumatic, normocephalic, normal inspection Eye exam: Present: normal appearance, PERRL, EOMI. Absent: scleral icterus, conjunctival injection, periorbital swelling Respiratory exam: Present: normal lung sounds bilaterally. Absent: respiratory distress, wheezes, rales, rhonchi, stridor Cardiovascular Exam: Present: regular rate, normal rhythm, normal heart sounds. Absent: systolic murmur, diastolic murmur, rubs, gallop, clicks Neurological exam: Present: alert, oriented X3, CN II-XII intact Psychiatric exam: Present: normal affect, normal mood Skin exam: Present: warm, dry, intact, normal color. Absent: rash Course Vital Signs 05/07/23 05/07/23 00:14 01:58 Pulse Rate 60 60 Respiratory 18 18 Rate Blood Pressure 133/87 138/88 O2 Sat by Pulse 95 96 Oximetry Medical Decision Making - Medical Decision Making This is a 73-year-old female who presents to the emergency department for dizziness. Was pt. sent in by a medical professional or institution? @ -Transfer from [facility] Did you speak to anyone other than the patient for history? @ -No Did you review nursing and triage notes? @ -Yes, and I agree, it is accurate with regards to the patient's symptoms. Were old charts reviewed? @ -Yes, records sent with the patient from [facility] were thoroughly reviewed. Patient was found to have bilateral nystagmus in the ED concerning for a central cause of her symptoms. She was also experiencing ataxia with ambulation and required assistance, and she walks without a walker or assistance at baseline. Lab work was unremarkable. 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 They activated the stroke network and discussed the case with Dr. Clifford. They advised that she is not a TPA or thrombectomy candidate. Given their concern for posterior stroke, patient was transferred here for further workup including an MRI and neurological evaluation. Differential Diagnosis? @ -Differential Dizziness: Benign paroxysmal positional Vertigo, Menieres disease, otitis media, acoustic neuroma, vertebrobasilar insufficiency, cerebellar stroke, encephalitis, hypovolemic, arrhythmia, coronary artery syndrome, anemia, this is not meant to be an all-inclusive list EKG interpreted by me (3pts min.)? @ -EKG interpreted by me demonstrating the following: Electronic atrial pacemaker. Ventricular rate 61 beats per minute, SD interval 205 ms, QRS duration 113 ms, QTC 428 ms. X-rays interpreted by me (1pt min.)? @ -Not obtained CT interpreted by me (1pt min.)? @ -Not obtained U/S interpreted by me (1pt. min.)? @ -Not obtained What testing was considered but not performed? (CT, X-rays, U/S, labs)? Why? @ -None What meds were considered but not given? Why? @ -None Did you discuss the management of the patient with other professionals? @ -Yes, Javier Mcneal with [facility], who accepts the patient for admission. Did you reconcile home meds? @ -No Was smoking cessation discussed for >3mins.? @ -No Was critical care preformed (if so, how long)? @ -No Were there social determinants of health that impacted care today? How? (Homelessness, low income, unemployed, alcoholism, drug addiction, transport ation, low edu. Level, literacy, decrease access to med. care, usp, rehab)? @ -No Was there de-escalation of care discussed even if they declined? (Discuss DNR or withdrawal of care, Hospice)? @ -No What co-morbidities impacted this encounter? (DM, HTN, Smoking, COPD, CAD, Cancer, CVA, Hep., AIDS, mental health diagnosis, sleep apnea, morbid obesity)? @ -HTN, cerebral aneurysm, aneurysm of internal carotid artery, CAD, CKD, a-fib Was patient admitted / discharged? @ -Admitted. Patient transferred from [facility] for concern of posterior stroke. She was admitted to medicine with neurology consult. Patient has a pacemaker and is unsure if this is MRI compatible. For this reason I did not order the MRI myself. She has the [facility] MRI [id number]. Records sent with the patient, including blood work and imaging will be scanned into the system. We did obtain basic labs with results pending at the time of admission. Undiagnosed new problem with uncertain prognosis? @ -None Drug Therapy requiring intensive monitoring for toxicity (Heparin, Nitro, Insulin, Cardizem)? @ -None Were any procedures done? @ -None Diagnosis/symptom? @ -Dizziness, nystagmus, ataxia Acute, or Chronic, or Acute on Chronic? @ -Acute Uncomplicated (without systemic symptoms) or Complicated (systemic symptoms)? @ -Uncomplicated Side effects of treatment? @ -None Exacerbation, Progression, or Severe Exacerbation] @ -Not applicable Poses a threat to life or bodily function? @ -Yes This case was discussed in detail with the attending ED physician, Dr. Ji. Presentation, findings, and treatment plan discussed in detail as well. - Lab Data Result diagrams: 05/07/23 02:08 - Radiology Data Radiology results: report reviewed, image reviewed Disposition Clinical Impression: Dizziness, Nystagmus, Ataxia Disposition: ADMITTED IP TO THIS HOSP
[2023-05-07] MEDS ORDERED: SODIUM CHLORIDE 0.9% 1,000 ML IV SCH (02:45)
[2023-05-07 03:02] LABS: Basophils % (A) 0 %; Eosinophils # (A) 0.2 k/uL (0-0.7); Eosinophils % (A) 2 %; HCT 40.9 % (34.0-46.0); HGB 13.6 gm/dL (11.4-16.0); Lymphocytes # (A) 1.3 k/uL (1.0-4.8); Lymphocytes % (A) 16 %; MCH 29.1 pg (25.0-35.0); MCHC 33.1 g/dL (31.0-37.0); MCV 87.9 fL (80.0-100.0); Monocytes # (A) 0.5 k/uL (0-1.0); Monocytes % (A) 6 %; Neutrophils # (A) 6.1 k/uL (1.3-7.7); Neutrophils % (A) 74 %; Platelet Count 172 k/uL (150-450); RBC 4.66 m/uL (3.80-5.40); RDW 13.5 % (11.5-15.5); WBC 8.2 k/uL (3.8-10.6)
[2023-05-07 03:10] LABS: Partial Thromboplastin Time 24.9 sec (22.0-30.0); Prothrombin Time 10.7 sec (10.0-12.5)
[2023-05-07 03:31] LABS: ALT 23 U/L (4-34); AST 33 U/L (14-36); African American GFR (CKD) >90 (>60 ml/min/1.73 sqM); Albumin 4.3 g/dL (3.5-5.0); Alkaline Phosphatase 53 U/L (38-126); Anion Gap 12 mmol/L; Blood Urea Nitrogen 16 mg/dL (7-17); Calcium 9.1 mg/dL (8.4-10.2); Carbon Dioxide 22 mmol/L (22-30); Chloride 106 mmol/L (98-107); Glucose 114 mg/dL (74-99); Non-African American GFR(CKD) 90 (>60 ml/min/1.73 sqM); Potassium 3.6 mmol/L (3.5-5.1); Sodium 140 mmol/L (137-145); Total Bilirubin 0.6 mg/dL (0.2-1.3); Total Protein 6.8 g/dL (6.3-8.2)
[2023-05-07] MEDS ORDERED: DOCUSATE 100 MG CAP PO PRN (08:57)
[2023-05-07] MEDS ORDERED: HYDROcodone/APAP 10-325MG 1 EACH TAB PO PRN (08:57)
[2023-05-07] MEDS ORDERED: ATORVASTATIN 40 MG TAB PO SCH (09:00)
[2023-05-07] MEDS ORDERED: buPROPion XL 150 MG TAB.ER.24H PO SCH (09:00)
[2023-05-07] MEDS ORDERED: MECLIZINE 25 MG TAB PO PRN (09:02)
--- NOTE | 2023-05-07 09:10 | P.HPIM ---
History of Present Illness Patient is a very pleasant 73-year-old female came in with compensative vertigo which started a few days ago on end of worsens with head movement denied any fullness in the ears and he or hearing problem denied any recent URI like sy mptoms but patient was treated with amoxicillin for about a week for strep sore throat. Patient does have history of atrial fibrillation on anti-correlation does have history of coronary artery disease on aspirin and a statin. Patient denied any fever chills nausea vomiting. Patient does denied any weakness patient doesn't have any similar signs on exam. CT of the head that was done at the [facility] did not show any stroke or CP angle tumors. Patient's vertigo is not better compared to yesterday. Patient cannot get an MRI because of a pacemaker. REVIEW OF SYSTEMS: CONSTITUTIONAL: No fever, no malaise, no fatigue. HEENT: No recent visual problems or hearing problems. Denied any sore throat. CARDIOVASCULAR: No chest pain, orthopnea, PND, no palpitations, no syncope. PULMONARY: No shortness of breath, no cough, no hemoptysis. GASTROINTESTINAL: No diarrhea, no nausea, no vomiting, no abdominal pain. NEUROLOGICAL: No headaches, no weakness, no numbness. HEMATOLOGICAL: Denies any bleeding or petechiae. GENITOURINARY: Denies any burning micturition, frequency, or urgency. MUSCULOSKELETAL/RHEUMATOLOGICAL: Denies any joint pain, swelling, or any muscle pain. ENDOCRINE: Denies any polyuria or polydipsia. The rest of the 14-point review of systems is negative. PHYSICAL EXAMINATION: GENERAL: The patient is alert and oriented x3, not in any acute distress. Well developed, well nourished. HEENT: Pupils are round and equally reacting to light. EOMI. No scleral icterus. No conjunctival pallor. Normocephalic, atraumatic. No pharyngeal erythema. No thyromegaly. CARDIOVASCULAR: S1 and S2 present. No murmurs, rubs, or gallops. PULMONARY: Chest is clear to auscultation, no wheezing or crackles. ABDOMEN: Soft, nontender, nondistended, normoactive bowel sounds. No palpable organomegaly. MUSCULOSKELETAL: No joint swelling or deformity. EXTREMITIES: No cyanosis, clubbing, or pedal edema. NEUROLOGICAL: Gross neurological examination did not reveal any focal deficits. Patient doesn't have any similar signs Romberg sign with the eyes open and close is negative. Dik's Halspike maneuver yielded mild horizontal nystagmus. Extraocular movements are intact SKIN: No rashes. Assessment and plan -Vertigo appears to be peripheral and benign push vertigo, neurology evaluation if cleared by neurology patient will be discharged on meclizine if patient's symptom doesn't improve with meclizine and patient will need vestibular rehabilitation. -Proximal atrial fibrillation presently sinus rhythm patient is on anticoagulation which will be continued resume home medications [place]-coronary artery disease -Hypertension -Hyperlipidemia -Sleep apnea -Gases within reflux disease If cleared by neurology patient will be discharged on meclizine follow-up with PCP if symptoms doesn't resolve patient need referral for vestibular rehabilitation as an outpatient Past Medical History Past Medical History: Atrial Fibrillation, GERD/Reflux, Hyperlipidemia, Hypertension, Osteoarthritis (OA), Sleep Apnea/CPAP/BIPAP, Thyroid Disorder Additional Past Medical History / Comment(s): LOOP RECORDER IN PLACE. BRAIN ANEURYSM History of Any Multi-Drug Resistant Organisms: None Reported Past Surgical History: Adenoidectomy, Appendectomy, Section, Joint Replacement, Orthopedic Surgery, Tonsillectomy Additional Past Surgical History / Comment(s): LEFT FOOT SURGERY X3, BILATERAL HIP REPLACEMENT, LEFT SHOULDER REPLACEMENT, LOOP RECORDER PLACED, right carpal tunnel surgery, right foot surgery, with screw placed. Past Anesthesia/Blood Transfusion Reactions: No Reported Reaction Additional Past Anesthesia/Blood Transfusion Reaction / Comment(s): "SLOW TO WAKE" Past Psychological History: Anxiety Smoking Status: Never smoker Past Alcohol Use History: None Reported Past Drug Use History: None Reported - Past Family History Father Family Medical History: Cancer Mother Family Medical History: Cancer Medications and Allergies Home Medications Medication Instructions Recorded Confirmed Type Apixaban [Eliquis] 5 mg PO BID 09/17/21 08/05/22 History Aspirin 81 mg PO DAILY 09/18/21 08/05/22 History Calcium Carbonate/Vitamin D3 1 each PO DAILY 09/18/21 08/05/22 History [Calcium 600 mg-D3 10 Mcg (400 Iu)] Cholecalciferol [Vitamin D3 (125 125 mcg PO DAILY 09/18/21 08/05/22 History Mcg = 5000 Iu)] Cyanocobalamin (Vitamin B-12) 5,000 mcg PO DAILY 09/18/21 08/05/22 History [Vitamin B-12] Fluticasone Nasal [place] [Flonase 1 spray EA NOSTRIL DAILY 09/18/21 08/05/22 History Nasal [place]] Glucos Sul 2Kcl/MSM/Chond/C/Mn 1 each PO DAILY 09/18/21 08/05/22 History [Glucosamine Chondroitin Cap] Iron 65 mg PO DAILY 09/18/21 08/05/22 History Levothyroxine Sodium [Synthroid] 112 mcg PO MOTUWETHFRSA 09/18/21 08/05/22 History Multivitamin [Multivitamins Adult 1 each PO DAILY 09/18/21 08/05/22 History Gummies] Omeprazole 40 mg PO QAM 09/18/21 08/05/22 History Oxybutynin Chloride 5 mg PO QAM 09/18/21 08/05/22 History Pyridoxine HCl (Vitamin B6) 100 mg PO DAILY 09/18/21 08/05/22 History [Vitamin B-6] Rosuvastatin Calcium 40 mg PO HS 09/18/21 08/05/22 History Thiamine HCl [Vitamin B-1] 250 mg PO DAILY 09/18/21 08/05/22 History buPROPion HCL [Wellbutrin XL] 150 mg PO Q48H 09/18/21 08/05/22 History hydrALAZINE HCL 50 mg PO BID 09/18/21 08/05/22 History polyethylene glycoL 3350 [Miralax] 17 gm PO DAILY 09/18/21 08/05/22 History Bisoprolol Fumarate 2.5 mg PO QAM 08/02/22 08/05/22 History lisinopriL 40 mg PO QAM 08/02/22 08/05/22 History Docusate [Colace] 100 mg PO BID #60 capsule 08/05/22 Rx Doxycycline Hyclate 100 mg PO BID #10 tab 08/05/22 Rx HYDROcodone/APAP 10-325MG [[place] 1 tab PO Q4HR PRN #42 tab 08/05/22 Rx 10-325] Meclizine [Antivert] 25 mg PO TID PRN #30 tab 05/07/23 Rx Allergies Allergy/AdvReac Type Severity Reaction Status Date / Time No Known Allergies Allergy Verified 08/05/22 08:31 Physical Exam Vitals: Vital Signs Pulse Resp BP Pulse Ox 05/07/23 06:57 60 18 148/89 96 05/07/23 01:58 60 18 138/88 96 05/07/23 00:14 60 18 133/87 95 Intake and Output 05/06/23 05/07/23 05/07/23 22:59 06:59 14:59 Other: Weight 81.647 kg Results CBC & Chem 7: 05/07/23 02:08 05/07/23 02:08 Labs: Abnormal Lab Results - Last 24 Hours (Table) 05/07/23 Range/Units 02:08 Glucose 114 H (74-99) mg/dL
--- NOTE | 2023-05-07 09:10 | P.DS ---
Providers Date of admission: 05/07/23 01:05 Attending physician: Atul Barreto Consults: 05/07/23 01:04 Consult Physician Urgent Consulting Provider: Merrill Baker Consult Reason/Comments: Dizziness, nystagmus Do you want consulting provider notified?: Yes Primary care physician: Isis Loo MD Hospital Course: Patient is a very pleasant 73-year-old female came in with compensative vertigo which started a few days ago on end of worsens with head movement denied any fullness in the ears and he or hearing problem denied any recent URI like symptoms but patient was treated with amoxicillin for about a week for strep sore throat. Patient does have history of atrial fibrillation on anti- correlation does have history of coronary artery disease on aspirin and a statin. Patient denied any fever chills nausea vomiting. Patient does denied any weakness patient doesn't have any similar signs on exam. CT of the head that was done at the transferring hospital did not show any stroke or CP angle tumors. Patient's vertigo is not better compared to yesterday. Patient cannot get an MRI because of a pacemaker. REVIEW OF SYSTEMS: CONSTITUTIONAL: No fever, no malaise, no fatigue. HEENT: No recent visual problems or hearing problems. Denied any sore throat. CARDIOVASCULAR: No chest pain, orthopnea, PND, no palpitations, no syncope. PULMONARY: No shortness of breath, no cough, no hemoptysis. GASTROINTESTINAL: No diarrhea, no nausea, no vomiting, no abdominal pain. NEUROLOGICAL: No headaches, no weakness, no numbness. HEMATOLOGICAL: Denies any bleeding or petechiae. GENITOURINARY: Denies any burning micturition, frequency, or urgency. MUSCULOSKELETAL/RHEUMATOLOGICAL: Denies any joint pain, swelling, or any muscle pain. ENDOCRINE: Denies any polyuria or polydipsia. The rest of the 14-point review of systems is negative. PHYSICAL EXAMINATION: GENERAL: The patient is alert and oriented x3, not in any acute distress. Well developed, well nourished. HEENT: Pupils are round and equally reacting to light. EOMI. No scleral icterus. No conjunctival pallor. Normocephalic, atraumatic. No pharyngeal erythema. No thyromegaly. CARDIOVASCULAR: S1 and S2 present. No murmurs, rubs, or gallops. PULMONARY: Chest is clear to auscultation, no wheezing or crackles. ABDOMEN: Soft, nontender, nondistended, normoactive bowel sounds. No palpable organomegaly. MUSCULOSKELETAL: No joint swelling or deformity. EXTREMITIES: No cyanosis, clubbing, or pedal edema. NEUROLOGICAL: Gross neurological examination did not reveal any focal deficits. Patient doesn't have any similar signs Romberg sign with the eyes open and close is negative. Dik's Halspike maneuver yielded mild horizontal nystagmus. Extraocular movements are intact SKIN: No rashes. Assessment and plan -Vertigo appears to be peripheral and benign push vertigo, neurology evaluation if cleared by neurology patient will be discharged on meclizine if patient's symptom doesn't improve with meclizine and patient will need vestibular rehabilitation. -Proximal atrial fibrillation presently sinus rhythm patient is on anticoagulation which will be continued resume home medications [place]-coronary artery disease -Hypertension -Hyperlipidemia -Sleep apnea -Gases within reflux disease If cleared by neurology patient will be discharged on meclizine follow-up with PCP if symptoms doesn't resolve patient need referral for vestibular rehabilitation as an outpatient Plan - Discharge Summary New Discharge Prescriptions: New Meclizine [Antivert] 25 mg PO TID PRN #30 tab PRN Reason: Vertigo No Action Apixaban [Eliquis] 5 mg PO BID Aspirin 81 mg PO DAILY Calcium Carbonate/Vitamin D3 [Calcium 600 mg-D3 10 Mcg (400 Iu)] 1 each PO DAILY Cholecalciferol [Vitamin D3 (125 Mcg = 5000 Iu)] 125 mcg PO DAILY Cyanocobalamin (Vitamin B-12) [Vitamin B-12] 5,000 mcg PO DAILY Glucos Sul 2Kcl/MSM/Chond/C/Mn [Glucosamine Chondroitin Cap] 1 each PO DAILY hydrALAZINE HCL 50 mg PO BID Iron 65 mg PO DAILY Levothyroxine Sodium [Synthroid] 112 mcg PO MOTUWETHFRSA Multivitamin [Multivitamins Adult Gummies] 1 each PO DAILY Oxybutynin Chloride 5 mg PO QAM polyethylene glycoL 3350 [Miralax] 17 gm PO DAILY Rosuvastatin Calcium 40 mg PO HS Docusate [Colace] 100 mg PO BID #60 capsule HYDROcodone/APAP 10-325MG [[place] 10-325] 1 tab PO Q4HR PRN #42 tab PRN Reason: Pain buPROPion HCL [Wellbutrin XL] 150 mg PO Q48H Fluticasone Nasal [place] [Flonase Nasal [place]] 1 spray EA NOSTRIL DAILY Omeprazole 40 mg PO QAM Pyridoxine HCl (Vitamin B6) [Vitamin B-6] 100 mg PO DAILY Thiamine HCl [Vitamin B-1] 250 mg PO DAILY lisinopriL 40 mg PO QAM Bisoprolol Fumarate 2.5 mg PO QAM Doxycycline Hyclate 100 mg PO BID #10 tab Discharge Medication List Apixaban [Eliquis] 5 mg PO BID 09/17/21 [History] Aspirin 81 mg PO DAILY 09/18/21 [History] Calcium Carbonate/Vitamin D3 [Calcium 600 mg-D3 10 Mcg (400 Iu)] 1 each PO DAILY 09/18/21 [History] Cholecalciferol [Vitamin D3 (125 Mcg = 5000 Iu)] 125 mcg PO DAILY 09/18/21 [History] Cyanocobalamin (Vitamin B-12) [Vitamin B-12] 5,000 mcg PO DAILY 09/18/21 [History] Fluticasone Nasal [place] [Flonase Nasal [place]] 1 spray EA NOSTRIL DAILY 09/18/21 [History] Glucos Sul 2Kcl/MSM/Chond/C/Mn [Glucosamine Chondroitin Cap] 1 each PO DAILY 09/18/21 [History] Iron 65 mg PO DAILY 09/18/21 [History] Levothyroxine Sodium [Synthroid] 112 mcg PO MOTUWETHFRSA 09/18/21 [History] Multivitamin [Multivitamins Adult Gummies] 1 each PO DAILY 09/18/21 [History] Omeprazole 40 mg PO QAM 09/18/21 [History] Oxybutynin Chloride 5 mg PO QAM 09/18/21 [History] Pyridoxine HCl (Vitamin B6) [Vitamin B-6] 100 mg PO DAILY 09/18/21 [History] Rosuvastatin Calcium 40 mg PO HS 09/18/21 [History] Thiamine HCl [Vitamin B-1] 250 mg PO DAILY 09/18/21 [History] buPROPion HCL [Wellbutrin XL] 150 mg PO Q48H 09/18/21 [History] hydrALAZINE HCL 50 mg PO BID 09/18/21 [History] polyethylene glycoL 3350 [Miralax] 17 gm PO DAILY 03/04/22 [History] Bisoprolol Fumarate 2.5 mg PO QAM 08/02/22 [History] lisinopriL 40 mg PO QAM 08/02/22 [History] Docusate [Colace] 100 mg PO BID #60 capsule 08/05/22 [Rx] Doxycycline Hyclate 100 mg PO BID #10 tab 08/05/22 [Rx] HYDROcodone/APAP 10-325MG [[place] 10-325] 1 tab PO Q4HR PRN #42 tab 08/05/22 [Rx] Meclizine [Antivert] 25 mg PO TID PRN #30 tab 05/07/23 [Rx] Follow up Appointment(s)/Referral(s): Isis Loo MD [Primary Care Provider] - 3 Days Discharge Disposition: HOME SELF-CARE
[2023-05-07] MEDS ORDERED: PANTOPRAZOLE 40 MG TABLET PO SCH (09:30)
[2023-05-07] MEDS ORDERED: BISOPROLOL 5 MG TAB PO SCH (09:30)
[2023-05-07] MEDS ORDERED: APIXABAN 5 MG TAB PO SCH (09:30)
[2023-05-07] MEDS ORDERED: FLUTICASONE 50MCG/SPRAY NASAL 16GM EA NOSTRIL SCH (09:30)
[2023-05-07] MEDS ORDERED: ASPIRIN 81 MG PO SCH (09:30)
[2023-05-07] MEDS ORDERED: polyethylene glycoL 3350 17 GM POWD.PACK PO SCH (09:30)
[2023-05-07] MEDS ORDERED: lisinopriL 20 MG TAB PO SCH (09:30)
[2023-05-07] MEDS ORDERED: oxyBUTYnin chloride 5 MG TAB PO SCH (09:30)
--- NOTE | 2023-05-07 14:14 | CT ---
EXAMINATION TYPE: CT brain wo con DATE OF EXAM: 05/07/2023 COMPARISON: 03/24/2011 HISTORY: Ataxia Technique: Multiple axial images obtained from skull base to vertex without use of IV contrast sweetie loaiza. FINDINGS: Ventricles, basal cisterns and sulci over convexities are within normal limits and there is no mass e ffect or shift of the midline structures. No abnormal density is seen throughout the brain parenchyma and there is no acute intra or extra-axia l hemorrhage. Posterior fossa and brainstem, fourth ventricle and cerebellar pontine angles are grossly normal. Intraorbital contents appear normal and symmetric. There is a large mucous retention cyst or polyp in the right maxillary sinus otherwise the remaining paranasal sinuses and mastoid air cells are well aerated. The calvarium is intact. Comparison to the prior study reveals no interval change. IMPRESSION: No acute bleed or mass effect. No significant interval change compared to previous. IMPRESSION:
[2023-05-07 19:08] VITALS: BP 167/88; PULSE 62; TEMP 98.7
[2023-05-07] MEDS ORDERED: ATORVASTATIN 80 MG TAB PO SCH (21:00)
[2023-05-08] MEDS ORDERED: ASPIRIN 81 MG PO SCH (09:00)
--- NOTE | 2023-05-09 11:11 | P.CNNES ---
History of Present Illness Consult date: 05/07/23 Requesting physician: Lakeshia Lucero Reason for Consult: Dizziness, nystagmus History of Present Illness: Patient is a 73-year-old female came to the hospital by ambulance as a transfer from [facility] yesterday at 11:18 PM for neurological evaluation regarding new onset dizziness. Patient states she woke up yesterday morning at 5:30 AM and felt everything was moving around. She has to hang onto the things so would not fall. She was able to go to the bathroom but felt very dizzy, lightheaded. Subsequently she did not feel well, for did not appeal, and felt "out of sorts". She couldn't focus. There was no reported slurred speech, any focal numbness tingling or paralysis. She did feel very unsteady on her feet like will fall. Therefore she went to [facility], where she underwent testing as mentioned below. She was transferred to [facility] for neurological evaluation, rule out CVA. Patient states that for last couple days, when she goes to bed, and she moves around, she has to stop for about 20 seconds. She also notices that when she rolls over in the bed, it makes her dizzy. Patient states that she recently suffered from strep throat (confirmed) last week, just completed 7 day course of Augmentin as of yesterday. Patient denies any ear pain, or drainage. Patient states that she feels like her ears are "full of wax". EMS flow sheet notable in the chart. Vital signs on arrival blood pressure 133/87, pulse rate 60 respiration 18. Blood test shows normal CBC and PT/PTT, normal CMP. Home medications include aspirin 81 mg, Lipitor 80 mg, Protonix, listen upper 40 mg, Wellbutrin 150 mg every 48 hours, aspirin 81 mg, Eliquis 5 mg twice a day, Lipitor 40 mg, [place], levothyroxine, iron, hydralazine, B12 5000 g orally daily, vitamin D and calcium. Patient states that she has history of vertigo about 15 years ago. She went to ER, was prescribed Antivert. The symptoms lasted for about couple days. She was seen by ENT, and was told of problems with the crystals and got adjusted. She was fine until the symptoms recently started, but is more dizzi ness/lightheadedness rather than typical vertigo. Records from outside hospital: EKG shows electronic atrial pacemaker, CBC is normal with WBC 7.91 hemoglobin 14, platelets 179. BUN 19, creatinine 0.82. Electrolytes are normal. Hepatic panel normal. Pacemaker interrogation revealed no arrhythmias/hydrate episodes detected since last interrogation 04/12/2023. Device appears to be currently functioning as programmed. Chest x-ray showed no acute process CT head revealed no evidence of acute intracranial process. I personally reviewed CT head, and there is evidence of mucus retention/polyp in the right maxillary sinus. CTA of head and neck revealed no high-grade stenosis or focal occlusion. Mild dilation of the tip of the basilar artery up to 4 mm. Troponin negative. Magnesium 2.1. PT/PTT normal. Review of Systems Constitutional: Reports chills (Since pacemaker), Denies fever Eyes: denies blurred vision (Difficulty with focusing, needs consultation), denies diplopia, denies pain Ears: deny: decreased hearing, ear discharge, earache, tinnitus Ears, nose, mouth and throat: Reports headache, Reports sore throat (Recent strep throat) Cardiovascular: Reports chest pain, Reports shortness of breath Respiratory: Denies cough, Denies excessive sputum Gastrointestinal: Reports constipation, Denies abdominal pain, Denies diarrhea, Denies nausea, Denies vomiting Genitourinary: Reports stress incontinence, Denies dysuria, Denies hematuria, Denies urge incontinence Musculoskeletal: Reports low back pain, Reports neck pain, Denies myalgias Integumentary: Denies pruritus, Denies rash Neurological: Reports as per HPI Psychiatric: Reports anxiety, Reports depression Endocrine: Denies fatigue, Denies weight change Past Medical History Past Medical History: Atrial Fibrillation, GERD/Reflux, Hyperlipidemia, Hypertension, Osteoarthritis (OA), Sleep Apnea/CPAP/BIPAP, Thyroid Disorder Additional Past Medical History / Comment(s): LOOP RECORDER IN PLACE. BRAIN ANEURYSM History of Any Multi-Drug Resistant Organisms: None Reported Past Surgical History: Adenoidectomy, Appendectomy, Section, Joint Replacement, Orthopedic Surgery, Tonsillectomy Additional Past Surgical History / Comment(s): LEFT FOOT SURGERY X3, BILATERAL HIP REPLACEMENT, LEFT SHOULDER REPLACEMENT, LOOP RECORDER PLACED, right carpal tunnel surgery, right foot surgery, with screw placed. Past Anesthesia/Blood Transfusion Reactions: No Reported Reaction Additional Past Anesthesia/Blood Transfusion Reaction / Comment(s): "SLOW TO WAKE" Past Psychological History: Anxiety Smoking Status: Never smoker Past Alcohol Use History: None Reported Past Drug Use History: None Reported - Past Family History Father Family Medical History: Cancer Mother Family Medical History: Cancer Medications and Allergies Home Medications Medication Instructions Recorded Confirmed Type Apixaban [Eliquis] 5 mg PO BID 09/17/21 08/05/22 History Aspirin 81 mg PO DAILY 09/18/21 08/05/22 History Calcium Carbonate/Vitamin D3 1 each PO DAILY 09/18/21 08/05/22 History [Calcium 600 mg-D3 10 Mcg (400 Iu)] Cholecalciferol [Vitamin D3 (125 125 mcg PO DAILY 09/18/21 08/05/22 History Mcg = 5000 Iu)] Cyanocobalamin (Vitamin B-12) 5,000 mcg PO DAILY 09/18/21 08/05/22 History [Vitamin B-12] Fluticasone Nasal [place] [Flonase 1 spray EA NOSTRIL DAILY 09/18/21 08/05/22 History Nasal [place]] Glucos Sul 2Kcl/MSM/Chond/C/Mn 1 each PO DAILY 09/18/21 08/05/22 History [Glucosamine Chondroitin Cap] Iron 65 mg PO DAILY 09/18/21 08/05/22 History Levothyroxine Sodium [Synthroid] 112 mcg PO MOTUWETHFRSA 09/18/21 08/05/22 History Multivitamin [Multivitamins Adult 1 each PO DAILY 09/18/21 08/05/22 History Gummies] Omeprazole 40 mg PO QAM 09/18/21 08/05/22 History Oxybutynin Chloride 5 mg PO QAM 09/18/21 08/05/22 History Pyridoxine HCl (Vitamin B6) 100 mg PO DAILY 09/18/21 08/05/22 History [Vitamin B-6] Rosuvastatin Calcium 40 mg PO HS 09/18/21 08/05/22 History Thiamine HCl [Vitamin B-1] 250 mg PO DAILY 09/18/21 08/05/22 History buPROPion HCL [Wellbutrin XL] 150 mg PO Q48H 09/18/21 08/05/22 History hydrALAZINE HCL 50 mg PO BID 09/18/21 08/05/22 History polyethylene glycoL 3350 [Miralax] 17 gm PO DAILY 09/18/21 08/05/22 History Bisoprolol Fumarate 2.5 mg PO QAM 08/02/22 08/05/22 History lisinopriL 40 mg PO QAM 08/02/22 08/05/22 History Docusate [Colace] 100 mg PO BID #60 capsule 08/05/22 Rx Doxycycline Hyclate 100 mg PO BID #10 tab 08/05/22 Rx HYDROcodone/APAP 10-325MG [[place] 1 tab PO Q4HR PRN #42 tab 08/05/22 Rx 10-325] Meclizine [Antivert] 25 mg PO TID PRN #30 tab 05/07/23 Rx Allergies Allergy/AdvReac Type Severity Reaction Status Date / Time No Known Allergies Allergy Verified 08/05/22 08:31 Physical Examination - Vital Signs Vital Signs: Vital Signs Pulse Resp BP Pulse Ox 05/07/23 06:57 60 18 148/89 96 05/07/23 01:58 60 18 138/88 96 05/07/23 00:14 60 18 133/87 95 Intake and Output 05/06/23 05/07/23 05/07/23 22:59 06:59 14:59 Other: Weight 81.647 kg Patient is an elderly female, very pleasant, in no acute distress. Patient is alert awake oriented to time place and person. Speech and language functions are normal. Patient can name and repeat very well. No aphasia or dysarthria. Attention, concentration and fund of knowledge is adequate. On cranial nerve examination, pupils are equal, round and reacting to light, visual yepez are full on confrontation, with no neglect on double simultaneous stimulation. Extraocular muscles are intact, and there is evidence of nystagmus with bilateral end gaze. Face is symmetric, tongue protrudes to the midline. Palatal elevation and sensation normal, hearing was decreased moderately b ilaterally for finger rubbing, left more than right and shoulder shrug normal, facial sensation normal. When patient turned to the right, patient developed intense vertigo, with very obvious horizontal nystagmus in the primary gaze. Otologic examination revealed some soft wax, but I was able to see the eardrums bilaterally and was normal, shiny. On muscle strength testing, there is no pronator drift and the strength is normal in arms and legs distally and proximally. Deep tendon reflexes are symmetric 2 in the upper limbs at biceps, brachioradialis, 2 at the knees, 1 ankles and plantars downgoing bilaterally. Sensory to touch is equal with no neglect on double simultaneous stimulation. Cerebellar function showed no ataxia for [id number] testing, although patient has shakiness only with the left for [id number] testing. No dysdiadochokinesia. No ataxia for [id number] testing on either side. Tone and bulk of muscles normal. Gait was checked and patient was somewhat unsteady on the feet because of dizziness. On general examination, there is no carotid bruit or murmur, S1-S2 audible. Chest is clear on consultation. Abdomen is soft nontender. No organomegaly, mayda wel sounds present. Peripheral pulses are present. No peripheral edema. Results - Laboratory Findings CBC and BMP: 05/07/23 02:08 05/07/23 02:08 Abnormal Lab Findings: Abnormal Labs 05/07/23 02:08 Glucose 114 H Assessment and Plan Assessment: * Dizziness/lightheadedness, likely due to peripheral vestibular dysfunction. Patient suffered from strep throat recently, just completed 7 day course of Augmentin. Suspect ?viral labyrinthitis. The dizziness gets worse with positional changes, suggestive of secondary BPPV. CVA appears less likely. * History of vertigo/BPPV 15 years ago, resolved with Antivert. * Hypertension * Cerebral aneurysm, 4 mm involving basilar tip, nonruptured. * Atrial fibrillation, on long-term anticoagulation * Pacemaker * Hyperlipidemia Plan: * Patient cannot have MRI of the brain because of presence of pacemaker. * Patient is already on Eliquis 5 mg twice a day and aspirin 81 mg daily, therefore possibility of CVA is quite unlikely. Continue these medications and lovastatin 40 mg that she takes at home. * We will repeat CT head to rule out any interval change on the CAT scan, rule out bleed. If negative may be clear for discharge. * Patient does have a drop board worker Dr. Nelson, and has an appointment coming up on 05/12/2023. Patient was recommended to undergo 2-D echo with bubble study to rule out any embolic source. This can be done as an outpatient. * Patient already takes B12 5000 g orally daily, therefore no need to check B12 level. * Neurology will follow. Addendum: CT head revealed no acute process. No significant interval change compared to the previous. I personally reviewed CT head negative with the findings. Neurologically clear for discharge on Antivert, if she is deemed stable from balance standpoint. Discussed with patient's nurse to related to primary physician as well. If symptoms persist, recommend follow-up with ENT for possible treatment for secondary BPPV.
== END 2023-05-07 14:47 | disposition home or self-care (01) ==
LOC: EC 23:18 → 6NMEDSUR 05-07 01:05 → 3SCARD 05-07 03:59
PROVIDERS: ADMIT Hospitalist; ATTEND Hospitalist
DX: R42 Dizziness and giddiness (principal); I48.0 Paroxysmal atrial fibrillation; H55.00 Unspecified nystagmus; I25.10 Atherosclerotic heart disease of native coronary artery without angina pectoris; I10 Essential (primary) hypertension; I67.1 Cerebral aneurysm, nonruptured; K21.9 Gastro-esophageal reflux disease without esophagitis; E78.5 Hyperlipidemia, unspecified; E07.9 Disorder of thyroid, unspecified; G47.30 Sleep apnea, unspecified; M19.90 Unspecified osteoarthritis, unspecified site; F41.9 Anxiety disorder, unspecified; Z79.01 Long term (current) use of anticoagulants; Z79.82 Long term (current) use of aspirin; Z79.890 Hormone replacement therapy; Z79.899 Other long term (current) drug therapy; Z86.73 Personal history of transient ischemic attack (TIA), and cerebral infarction without residual deficits; Z95.818 Presence of other cardiac implants and grafts; Z90.49 Acquired absence of other specified parts of digestive tract; Z95.0 Presence of cardiac pacemaker; Z96.643 Presence of artificial hip joint, bilateral; Z96.612 Presence of left artificial shoulder joint; Z98.891 History of uterine scar from previous surgery; Z98.890 Other specified postprocedural states; Z80.9 Family history of malignant neoplasm, unspecified
CPT/HCPCS: 99285; 80053; 85025; 85610; 85730; 70450; G0378 ×2